=== PATIENT | male | born 1965 | race Caucasian/White ===

== ENCOUNTER 2018-02-22 13:57 | Outpatient (REF) | payer BC, SELFPAY ==
[2018-02-23 13:15] LABS: Chlamydia Result Negative; GC Result Negative; Specimen Description URINE
== END 2018-02-22 14:17 ==
LOC: LBN 13:57
PROVIDERS: PCP Family Medicine; Visit Provider Nurse Practitioner Family
DX: R10.2 Pelvic and perineal pain (principal)
CPT/HCPCS: 87491; 87591

== ENCOUNTER 2018-03-04 08:53 | Outpatient (CLI) | payer BC, SELFPAY ==
[2018-03-04 11:40] LABS: HCT 45.5 % (40.0-50.0); HGB 15.2 g/dL (13.5-17.5); Mean Corp. HGB Concentration 33.4 g/dL (32.0-36.0); Mean Corpuscular Hemoglobin 28.1 pg (27.0-33.0); Mean Corpuscular Volume 84.3 fL (80-95); Mean Platelet Volume 10.5 fL (8.0-11.0); Platelet Count 338 x1000/uL (130-400); RBC Distribution Width 14.6 % (11.8-14.1); White Blood Cell Count 5.64 k/cumm (4.4-10.8)
[2018-03-04 11:42] LABS: ALT 28 U/L (12-78); AST 23 U/L (15-37); Albumin 4.1 g/dL (3.4-5.0); Alkaline Phosphatase 72 U/L (46-116); Anion Gap 5.3 mmol/L (3-11); BUN 18 mg/dL (7-18); Bilirubin, Total 0.6 mg/dL (0.2-1.0); CO2 29.7 mmol/L (21.0-32.0); CREATININE 0.98 mg/dL (0.70-1.30); Calcium 9.1 mg/dL (8.5-10.1); Chloride 105 mmol/L (98-107); Glucose 120 mg/dL (70-100); Potassium 4.3 mmol/L (3.5-5.1); Sodium 140 mmol/L (136-145); Total Protein 7.2 g/dL (6.4-8.2)
[2018-03-04 16:50] LABS: Hemoglobin A1C 5.9 % (4.5-6.2)
== END 2018-03-04 09:13 ==
PROVIDERS: PCP Family Medicine; Visit Provider Nurse Practitioner Family
DX: R14.0 Abdominal distension (gaseous) (principal); K73.9 Chronic hepatitis, unspecified
CPT/HCPCS: 36415; 80053; 85027; 83036

== ENCOUNTER 2018-03-05 01:08 | Outpatient (CLI) | payer BC, SELFPAY ==
--- NOTE | 2018-03-05 07:00 | DI.US_ITS ---
SYMPTOM/DIAGNOSIS: ABDOMINAL BLOATING, EXCESS GAS 414.0 ABDOMINAL ULTRASOUND: The aorta and vena cava are normal. The liver is intact. The gallbladder is well maintained. There are no gallstones identified. The common duct caliber is 3 mm. The pancreas and spleen are normal. The kidneys are intact. The right kidney measures 10.5, the left kidney 11.0 cm. There is no evidence of free fluid in the abdomen or an abdominal mass. SUMMARY: Negative abdominal ultrasound. The study is less than ideal technically due to gas in the bowel.
== END 2018-03-05 01:28 ==
PROVIDERS: PCP Family Medicine; Visit Provider Nurse Practitioner Family
DX: R14.0 Abdominal distension (gaseous) (principal); R14.3 Flatulence
CPT/HCPCS: 76700

== ENCOUNTER 2018-07-19 06:15 | Day surgery (SDC) | payer BC, SELFPAY ==
--- NOTE | 2018-07-19 06:10 | W.COLOREPORT ---
Date of service: 07/19/18 Time of Service: 07:23 Colonoscopy Report Date of procedure: 07/19/18 Pre-op diagnosis general: Colon Cancer Screening Post-op diagnosis procedure note: other (Cecal polyp) Procedure: Colonoscopy with polypectomy by cold forceps Surgeon: Maria De Jesus Marrero Anesthesia proc note operative: other (General/ ASA 2/Sree Arce, CINTHIA ) Estimated blood loss (mL): 3 Pathology: other (cecal polyp) Complications: None Disposition: same day Indications: Mr. Gould is a pleasant 53 year old male seen in the office for a screening colonoscopy. Risks, benefits and complications have been reviewed. Complications include but are not limited to bleeding, pain, perforation, missed small lesion/polyp, sore throat, aspiration and adverse reaction to the medications. Questions were entertained and answered to their satisfaction and they wished to proceed. No guarantees were given or implied. Prep: Miralax/Dulcolax Procedure Start Time: 07:23 Procedure End Time: 07:48 Retraction Time: 14 minutes Findings: One small sessile polyp in the cecum Procedure Description: After informed consent was obtained the patient was taken to the procedure room and placed in a left decubitous position. Monitors were applied and a time out was done. The patients name, date of , procedure, allergies to medications and metal in their body was reviewed. The patient was then sedated. Once sedated and comfortable a rectal exam was done. External exam was normal. Internal exam revealed a normal sphincter tone and no palpable masses. The prostate felt smooth. The scope was then introduced and retro-flexed. No internal hemorrhoids were identified. The scope was then advanced to the cecum without difficulty. The TI and appendiceal orifice were identified. The prep was good. The scope was then slowly retracted over 14 minutes back into the rectum. Polyps were removed in the cecum with cold forceps. The scope was removed and the patient was woken up and taken back to Same day surgery in stable condition. The patient tolerated the procedure well and there were no immediate complications. Follow up: The patient should follow up in 3-5 years unless they develop changes in bowel habits or other new gastrointestinal complaints.
--- NOTE | 2018-07-19 06:12 | W.PM.DSUDISC ---
Discharge Plan Disposition Patient Disposition: HOME Condition: Good Discharge Details Reason For Visit: Colonoscopy Attending Provider: Maria De Jesus Marrero Primary Care Provider: Tang Perales Home Meds and New Rx's Prescriptions: Continued fluticasone propionate 50 mcg/actuation spray,suspension 2 spray NS DAILY Qty: 18.2 RF: 8 cetirizine [Zyrtec] 10 MG tablet 10 mg PO DAILY PRN RF: 0 ketoconazole 15 GM cream 15 gm Topical BID Qty: 30 RF: 0 Discharge Instructions Instructions: Colonoscopy (DC), Colorectal Polyps (DC) Additional Instructions: Findings: One small sessile polyp Follow up: 3-5 years Please call if you develop: fevers >101.5 Nausea or Vomiting Abdominal pain that is not transient DAY SURGERY UNIT POST COLONOSCOPY INSTRUCTIONS 1. Because there will be medication in your system for the next 24 hours, you may feel a little sleepy. Your coordination will be affected. Therefore: a. Do not drive or operate dangerous equipment for 24 hours. b. Do not drink alcohol beverages for 24 hours (not even beer). c. Plan to go home and rest for the day. 2. Generally there are no restrictions on your activity after a day or so has gone by, but you may feel a bit fatigued for a few days. 3 After you arrive home you may have a light meal and return to a normal diet as you can tolerate it without feeling sick to your stomach. 4. After surgery, you may feel pain or discomfort. This should be only transient, but if it persists please contact your doctor. 5. If there are any questions regarding the findings of your procedure, please feel free to contact your doctor. 6. If you are unable to contact your doctor with a problem, contact the hospital at [phone]. 7. Continue all your regular medications unless directed otherwise. I understand the above instructions and have no questions. Signature of Patient or Responsible Adult Escort Date/Time Name of Responsible Adult Escort Signature of Nurse Date/Time Activity:: Activity as Tolerated Diet:: As Tolerated Discharge Orders Discharge Orders: Discharge Order (Routine); Ordered 07/19/18 Ordered By: Maria De Jesus Marrero DS: Diagnosis Discharge Diagnosis (1) S/P colonoscopy: Status: Acute (2) Colorectal polyp detected on colonoscopy: Status: Acute
[2018-07-19 06:19] VITALS: BP 141/90; PULSE 94; RESP 18; TEMP 35.9; O2SAT 100
[2018-07-19] MEDS: Lactated Ringers 1,000 ML 80 ML IV (06:50)
--- NOTE | 2018-07-19 07:33 | BOWEL_PTH ---
PATIENT: Arpit Gould LOC: [facility] U#:[id number] AGE/SX: 53/M ROOM: RE07/19/[address]: Maria De Jesus Marrero MD : 1965 BED: DIS: 07/19/2018 SPEC #: [id number] RECD: 07/19/18 12:43 STATUS: MELISSA REQ #: [id number] SHEMAR: 07/19/18 07:[address]: Maria De Jesus Marrero DEPT: Surgical Specimen RECD BY: Faye Corrales ENTERED: 07/19/18 12:44 SP TYPE: Bowel OTHR DR: Tang Perales MD Tissues: 1 - BIOPSY BOWEL Procedures: GROSS AND MICRO LEVEL 4 Comments: [id number]
[2018-07-19 08:25] VITALS: BP 134/88; PULSE 68; RESP 16; TEMP 36.2; O2SAT 99
== END 2018-07-19 08:38 | disposition home or self-care (01) ==
PROVIDERS: PCP Family Medicine; Visit Provider Surgery
PROC: 0DJD8ZZ Inspection of Lower Intestinal Tract, Via Natural or Artificial Opening Endoscopic (ICD-10-PCS; CPT 45378; principal; 2018-07-19 07:30)
DX: Z12.11 Encounter for screening for malignant neoplasm of colon (principal); D12.0 Benign neoplasm of cecum
CPT/HCPCS: 45380; 88305; J3010

== ENCOUNTER 2019-03-10 11:45 | Outpatient (CLI) | payer BC, SELFPAY ==
[2019-03-10 13:14] LABS: HCT 45.8 % (40.0-50.0); HGB 15.5 g/dL (13.5-17.5); Mean Corp. HGB Concentration 33.8 g/dL (32.0-36.0); Mean Corpuscular Hemoglobin 28.2 pg (27.0-33.0); Mean Corpuscular Volume 83.3 fL (80-95); Mean Platelet Volume 10.5 fL (8.0-11.0); Platelet Count 362 x1000/uL (130-400); RBC Distribution Width 14.4 % (11.8-14.1)
== END 2019-03-10 12:05 ==
PROVIDERS: PCP Family Medicine; Visit Provider Nurse Practitioner
DX: R14.0 Abdominal distension (gaseous) (principal)
CPT/HCPCS: 36415; 85027

== ENCOUNTER 2019-09-01 02:59 | Outpatient (CLI) | payer BC, SELFPAY ==
[2019-09-01 13:59] LABS: Anion Gap 8.5 mmol/L (3-11); BUN 17 mg/dL (7-18); CO2 25.5 mmol/L (21.0-32.0); Calcium 9.4 mg/dL (8.5-10.1); Chloride 102 mmol/L (98-107); Glucose 95 mg/dL (74-106); Potassium 4.2 mmol/L (3.5-5.1); Sodium 136 mmol/L (136-145)
[2019-09-01 14:13] LABS: Calculated LDL 119 mg/dL (<100); Cholesterol 187 mg/dL (<200); HDL Cholesterol 62 mg/dL (40-60); TSH 0.96 uIU/mL (0.36-3.74); Triglyceride 34 mg/dL (<150)
[2019-09-05 12:46] LABS: IgA 258 mg/dL (85-499); Tissue Transglutaminase IgA <1.2 U/mL (<4.0)
== END 2019-09-01 03:19 ==
PROVIDERS: Family Medicine; PCP Emergency Medicine; Visit Provider Emergency Medicine
DX: R14.0 Abdominal distension (gaseous) (principal); E03.9 Hypothyroidism, unspecified; Z00.00 Encounter for general adult medical examination without abnormal findings
CPT/HCPCS: 36415; 80048; 80061; 82784; 83516; 84443

== ENCOUNTER 2019-09-02 07:21 | Outpatient (REF) | payer BC, SELFPAY ==
[2019-09-03 11:22] LABS: Campylobacter PCR Negative (Negative); Salmonella PCR Negative (Negative); Shiga Toxin PCR Negative (Negative); Shigella/Enteroinvasive Ecoli Negative (Negative)
[2019-09-05 14:39] LABS: Calprotectin 26.3 mcg/g
== END 2019-09-02 07:41 ==
LOC: LBN 07:21
PROVIDERS: PCP Emergency Medicine; Visit Provider Emergency Medicine
DX: R19.7 Diarrhea, unspecified (principal); R14.0 Abdominal distension (gaseous)
CPT/HCPCS: 87329; 87505; 83993; 87324

== ENCOUNTER 2020-12-04 17:09 | Emergency (ER) | payer BC, SELFPAY ==
[2020-12-04 18:01] VITALS: BP 173/70; PULSE 75; RESP 16; TEMP 36.9; O2SAT 100
[2020-12-04] MEDS: Tetracaine 0.5% 4 ML BTL (19:17)
[2020-12-04] MEDS: Fluorescein STRIPS 100/BOX 1 MG (19:17)
[2020-12-04] MEDS: Erythromycin Ophth Oint 3.5 GM TUBE OD (19:18)
--- NOTE | 2020-12-04 19:35 | ED.GENADUL_ITS ---
Discharge Plan Disposition Patient Disposition: HOME Condition: Good Discharge Details Clinical Impression: Foreign body in eye Primary Care Provider: Aubrey Rojas ED Provider: Faye Obando Home Meds and New Rx's Prescriptions: Continued fluticasone propionate 50 mcg/actuation spray,suspension 2 spray NS DAILY Qty: 18.2 RF: 8 IBgard 90 mg capsule,delayed,extend.release 90 mg PO DAILY RF: 0 Metamucil 3.4 gram/5.4 gram powder 1 tbsp PO DAILY PRNRF: 0 sh-mxdz-pszms-lycopene-ginkgo 400-600-120 mcg-mcg-mg tablet 1 tab PO DAILY RF: 0 famotidine 20 mg tablet 20 mg PO DAILY Qty: 90 RF: 6 Discharge Instructions Instructions: Eye Foreign Body (ED) Additional Instructions: follow-up with eye doctor tomorrow with persistent pain use erythromycin ointment 3 times daily return earlier with new or worsening complaints [facility] is a good local resource Discharge Data Discharge Date/Time-TO BE ENTERED AT DEPARTURE: 12/04/20 19:37 Medical Decision Making Foreign body was removed by me from underneath patient's right upper lid, he tolerated procedure without incident Placed on erythromycin There is no actual evidence of corneal abrasion although his conjunctiva is injected secondary to probable irritation He is instructed to return earlier should he have new or worsening pain Pupils are equal round reactive to light and accommodation There is no evidence of glaucoma clinically Visual acuity reviewed, please see nursing documentation Foreign body removed by me without incident, patient tolerated well Placed on erythromycin and referral to ophthalmology HPI General Mode of arrival: ambulatory . Date/Time Provider Initiated Documentation: 12/04/20 18:57 . Limitations to Documentation: no limitations . Information obtained by: patient . HPI Narrative: This 65-year-old gentleman presents with pain to his right thigh. 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 He is pain with movement of his eyes since that time. He denies any corrective lens use. He denies any acute change in his vision although he does state he has had some blurring. Denies headache associated Related Data Home Medications Medication Instructions Recorded Confirmed fluticasone propionate 50 2 spray NS DAILY #18.2 gm 08/11/19 12/04/20 mcg/actuation nasal spray,suspension famotidine 20 mg tablet 20 mg PO DAILY #90 tab 10/26/19 12/06/20 myoaryqa-avyj-xecbp acid 400 1 tab PO DAILY tab 09/06/20 12/06/20 mcg-lycopene 600 mcg-ginkgo 120 mg tablet peppermint oil 90 mg 90 mg PO DAILY cap 09/06/20 12/06/20 capsule,delayed,extended release psyllium husk 3.4 gram/5.4 gram 1 tbsp PO DAILY PRN 09/06/20 12/06/20 oral powder Previous Rx's Medication Instructions Recorded fluticasone propionate 50 2 spray NS DAILY #18.2 gm 08/11/19 mcg/actuation nasal spray,suspension famotidine 20 mg tablet 20 mg PO DAILY #90 tab 10/26/19 Allergies Allergy/AdvReac Type Severity Reaction Status Date / Time Penicillins Allergy Unknown Verified 12/06/20 07:23 General Stated Complaint: EyeProblem MICHELLE: 4 Review of Systems All systems reviewed & are unremarkable except as noted in HPI and below PFSH Medical History (Updated 12/04/20 @ 19:10 by JAKUB Tse) Encounter for screening colonoscopy Fatigue Groin rash (05/14/16) IBS (irritable bowel syndrome) Obesity Prediabetes (~2011) Pterygium of left eye (05/14/16) Surgical History History of esophagogastroduodenoscopy (EGD) History of excision of lesion excision of lesion left side of nose S/P colonoscopy (~07/19/18) Family History (Updated 09/07/20 @ 14:22 by Jackie Koehler) Mother , 70 Essential hypertension Heart attack Father No problems noted. Brother No problems noted. Brother No problems noted. Maternal Grandfather , HEART FAILURE at age 67. Heart disease Paternal Grandfather No problems noted. Maternal Grandmother Uterine cancer Paternal Grandmother Diabetes Breast cancer Sister Wang's palsy Social History (Updated 09/07/20 @ 14:21 by Jackie Koehler) Smoking/Tobacco Use Status: Current-Occasional Tobacco Type: smokeless tobacco Smokeless tobacco user: chewing tobacco Second Hand Exposure: Yes Smoking risk assessment performed?: Yes Alcohol Intake: current Alcohol Intake frequency: a few times a week Alcohol type: beer and hard liquor Drug use: Never Caregiver/Support person: No Household members: spouse and significant other Housing: house Communication Needs: None Do you need help understanding health information?: Rarely Pets and animals: No Sexually active: Yes Do you think of yourself as: straight/heterosexual Current gender identity: male What is your relationship status?: How often do you talk on the phone with friends or family?: three or more times per week How often do you get together with friends or relatives?: once per week How often do you attend yarsani or mandaeism services?: decline to answer Do you belong to any clubs or organized social groups?: yes Panel score (0-1 are the most socially isolated patients): 3 What type of physical activity do you participate in: none Wen/Zoroastrian: Rastafari Special wen needs: No Seatbelt use: always Helmet use: Yes Helmet use: sometimes Drive intox 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 Do you feel safe at home: Yes Do you feel safe in your relationship?: Yes Exam Const General: cooperative Eyes Conjunctivae: conjunctival abnormality Pupils: PERRL EOM: EOM intact bilaterally Other: Foreign body noted under right upper lid Course Vital Signs Vital signs: Vital Signs Temperature 36.9 C 12/04/20 18:01 Pulse 75 12/04/20 18:01 Respiratory Rate 16 12/04/20 18:01 Blood Pressure 173/07 H 12/04/20 18:01 Pulse Oximetry 100 12/04/20 18:01 Temperature 36.9 C 12/04/20 18:01 Temperature Source Skin 12/04/20 18:01 Pulse 75 12/04/20 18:01 Respiratory Rate 16 12/04/20 18:01 Respiratory Effort 12/04/20 18:01 Blood Pressure 173/07 H 12/04/20 18:01 Blood Pressure Position Sitting 12/04/20 18:01 Pulse Oximetry 100 12/04/20 18:01 Oxygen Delivery Method Room Air 12/04/20 18:01 Oxygen Flow Rate 0 12/04/20 18:01 Pain Level 6 12/04/20 18:01
[2020-12-04 19:38] VITALS: BP 173/70; PULSE 75; RESP 16; O2SAT 100
== END 2020-12-04 19:37 | disposition home or self-care (01) ==
PROVIDERS: Emergency Provider Physician Assistant; PCP Emergency Medicine
DX: T15.81XA Foreign body in other and multiple parts of external eye, right eye, initial encounter (principal); X58.XXXA Exposure to other specified factors, initial encounter
CPT/HCPCS: 99283

== ENCOUNTER 2022-10-30 08:24 | Outpatient (CLI) | payer BC, SELFPAY ==
[2022-10-30 13:35] LABS: Hemoglobin A1C 5.6 % (<5.7)
[2022-10-30 13:40] LABS: Calculated LDL 140 mg/dL (<100); Cholesterol 217 mg/dL (<200); HDL Cholesterol 72 mg/dL (40-60); Triglyceride 27 mg/dL (<150)
== END 2022-10-30 08:25 | disposition home or self-care (01) ==
LOC: LOS 08:25
PROVIDERS: PCP Nurse Practitioner Family; Referring Provider Nurse Practitioner Family; Visit Provider Nurse Practitioner Family
DX: Z13.220 Encounter for screening for lipoid disorders (principal); Z13.1 Encounter for screening for diabetes mellitus
CPT/HCPCS: 36415; 80061; 83036

== ENCOUNTER 2023-11-11 03:06 | Outpatient (CLI) | payer BC, SELFPAY ==
[2023-11-11 12:46] LABS: Calculated LDL 128 mg/dL (<100); Cholesterol 225 mg/dL (<200); HDL Cholesterol 90 mg/dL (40-60); Triglyceride 38 mg/dL (<150)
[2023-11-11 12:47] LABS: Hemoglobin A1C 5.5 % (<5.7)
[2023-11-11 18:10] LABS: PSA, Screening 0.8 ng/mL (<=3.5)
== END 2023-11-11 03:07 | disposition home or self-care (01) ==
LOC: LOS 03:06
PROVIDERS: PCP Nurse Practitioner Family; Visit Provider Nurse Practitioner Family
DX: Z13.220 Encounter for screening for lipoid disorders (principal); Z12.5 Encounter for screening for malignant neoplasm of prostate; Z13.1 Encounter for screening for diabetes mellitus
CPT/HCPCS: 36415; 80061; 84153; 83036

== ENCOUNTER 2024-03-25 09:06 | Day surgery (SDC) | payer BC, SELFPAY ==
--- NOTE | 2024-03-24 15:59 | W.PM.DSUDISC ---
Date of service: 03/25/24 Discharge Plan Disposition Patient Disposition: Home Condition: Good Discharge Details Reason For Visit: screening colonoscopy Attending Provider: Erich Pace Primary Care Provider: Murphy Jennings Home Meds and New Rx's Prescriptions: Continued fluticasone propionate 50 mcg/actuation spray,suspension 2 spray NS DAILY Qty: 18.2 8RF IBgard 90 mg capsule,delayed,extend.release 90 mg PO DAILY Metamucil 3.4 gram/5.4 gram powder 1 tbsp PO DAILY PRN Rx Instructions: mix into at least 8 oz of water or juice before administering iu-ptdv-asfru-lycopene-ginkgo 400-600-120 mcg-mcg-mg tablet 1 tab PO DAILY famotidine 20 mg tablet 20 mg PO DAILY Qty: 90 6RF Discontinued bisacodyl [Dulcolax (bisacodyl)] 5 mg tablet,delayed release (DR/EC) 5 mg PO ONCE Qty: 4 0RF Rx Instructions: Take per colonoscopy instructions provided by ordering providers office polyethylene glycol 3350 17 gram/dose powder 17 g PO ONCE Qty: 238 0RF Rx Instructions: Take per colonoscopy instructions provided by ordering providers office Discharge Instructions Instructions: Colon polyps Additional Instructions: Arpit, it was great meeting you today, and I hope you are comfortable throughout the procedure. Everything went very smoothly. I did find to remove just 1 single polyp today. It is quite small, and I do not think it has anything to worry about. I will send this off to the pathologist for their review, once I know the nature of that polyp, I will be in touch with recommendations for screening of your next colonoscopy. If you need anything or have any questions at all, please do not hesitate to ask. 1. If tolerated, consume a soft, low fiber diet for 1-2 days. 2[address] Do not drive, drink alcohol, operate machinery, make critical decisions, or do activities that require coordination or balance for 24 hours. 3. Because air was put into your colon during the procedure, expelling air from your rectum (passing gas or farting) is normal. 4. You may not have a bowel movement for 1-3 days because of the colonoscopy prep. This is normal. 5. Go directly to the emergency room if you notice any of the following: Develop chills (warm to touch), or if you have a thermometer and your temperature is above 101 Difficulty breathing or difficultly swallowing Persistent vomiting Severe abdominal pain, other than gas cramps Severe chest pain Black, tarry stools Any bleeding ? exceeding one tablespoon 6. Call your physician if the site where your intravenous was started becomes red, swollen, painful, and warm to touch. 7. Your physician has reviewed your pre-procedure medications. Please continue to take those medications as previously ordered. You will be given specific information/education regarding any changes to your medications before leaving. Stand Alone Forms: Anesthesia Discharge InstRegina Enriquez (DSU) Activity:: Activity as Tolerated Diet:: As Tolerated Discharge Orders Discharge Orders: Discharge Order (Routine); Ordered 03/24/24 Ordered By: Erich Pace DS: Diagnosis Discharge Diagnosis (1) Encounter for screening colonoscopy: Status: Acute Asessment and Plan: Follow-up on polypectomy results
--- NOTE | 2024-03-24 16:01 | W.COLOREPORT ---
Date of service: 03/25/24 Time of Service: 11:34 Colonoscopy Report Date of procedure: 03/25/24 Pre-op diagnosis general: screening colonoscopy Post-op diagnosis procedure note: other (Colon polyps, diverticulosis) Procedure: colonoscopy with polypectomy Surgeon: Erich Pace Anesthesia Type: General:No Airway Estimated blood loss (mL): 5 Pathology: other (0.25 cm flat polyp in the cecum) Complications: None Disposition: same day Indications: Arpit is a 58 year old man with a family history of colon cancer and personal history of adenomatous polyos who needs a screening colonscopy Prep: Miralax/Dulcolax Procedure Start Time: 10:55 Procedure End Time: 11:11 Retraction Time: 9 Findings: 0.25 cm flat cecal polyp, scant diverticulosis Procedure Description: After the induction of anesthesia, and with the patient in left lateral decubitus position, I began by performing an external anorectal exam.? Perineum and skin were normal, as was the anal verge.? There was no evidence of external hemorrhoids.? Next, I performed a digital rectal exam.? I did not appreciate any abnormal findings.? Next, I advanced a colonoscope into the rectal vault.? I performed retroflexion.? This appeared normal.? Using insufflation, I then advanced the colonoscope beyond the rectal folds and into the sigmoid colon before advancing towards the cecum.? The quality of the prep was excellent.? The scope was noted to be in the cecum by identification of the ileocecal valve and appendiceal orifice.? On the top side of the ileocecal valve was a 0.25 cm flat polyp. This was removed with cold forceps with minimal bleeding I then began withdrawing the colonoscope using repeated irrigation as necessary for full evaluation of the colonic mucosa. ?There were some occasional small diverticula scattered along the length of the colon as well. Once the scope was withdrawn to the level of the rectum, great care was taken to examine portions of the rectal folds.? Finally, the scope was withdrawn and the patient was brought to the same-day surgery recovery unit as the anesthetic wore off. ?The findings and instructions were shared with the patient prior to discharge. [place] Bowel Prep [place] Bowel Prep Right Colon: 3 Left Colon: 3 Transverse Colon: 3 Total Score: 9
[2024-03-25 09:29] VITALS: BP 167/97; PULSE 95; RESP 18; TEMP 36.4; O2SAT 99
[2024-03-25] MEDS: Lactated Ringers 1,000 ML 80 ML IV (09:46)
--- NOTE | 2024-03-25 10:10 | BOWEL_PTH ---
PATIENT: Arpit Gould LOC: [facility] U#:[id number] AGE/SX: 58/M ROOM: RE03/25/[address]: Erich Pace MD : 1965 BED: DIS: 03/25/2024 SPEC #: [id number] RECD: 03/25/24 13:00 STATUS: MELISSA REQ #: [id number] SHEMAR: 03/25/24 10:[address]: Erich Pace DEPT: Surgical Specimen RECD BY: Faye Corrales ENTERED: 03/25/24 13:00 SP TYPE: Bowel OTHR DR: Murphy Jennings, MINA Tissues: 1 - BIOPSY BOWEL Procedures: GROSS AND MICRO LEVEL 4 Comments: [id number]
--- NOTE | 2024-03-25 10:48 | W.ANESPRE ---
General Info Date of Service Date Performed: 03/25/24 Height: 5 ft 11 in Weight: 103.4 kg Body Mass Index (BMI): 31.8 Surgical Procedure: Operation Date: 03/25/24 10:30 Proposed Procedure Side Surgeon p Colonoscopy Erich Pace MD Actual Procedure Side Surgeon p Colonoscopy Not Applicable Erich Pace MD Pre-Op Diagnosis Post-Op Diagnosis HISTORY OF COLON POLYPS Meds Allergies and Home Medications Allergies Allergy/AdvReac Type Severity Reaction Status Date / Time Penicillins Allergy Unknown n/a Verified 03/25/24 09:27 Home Medication ?Medication ?Instructions ?Recorded famotidine 20 mg tablet 20 mg PO DAILY #90 tabs 10/26/19 shxatvxx-fjly-whevq acid 400 1 tab PO DAILY 09/06/20 mcg-lycopene 600 mcg-ginkgo 120 mg tablet peppermint oil 90 mg 90 mg PO DAILY 09/06/20 capsule,delayed,extended release (IBgard) psyllium husk 3.4 gram/5.4 gram 1 tbsp PO DAILY PRN 09/06/20 oral powder (Metamucil) fluticasone propionate 50 2 spray NS DAILY #18.2 grams 11/05/23 mcg/actuation nasal spray,suspension Current Visit Medications: Current Medications Generic Name Dose Route Start Last Admin Trade Name Freq PRN Reason Stop Dose Admin Ringer's Solution 1,000 mls @ 0 mls/hr 03/25/24 06:00 03/25/24 09:46 IV 03/25/24 23:59 80 mls/hr INFUSION MARCIA Administration Ringer's Solution 1,000 mls @ 80 mls/hr 03/25/24 09:15 IV 04/24/24 09:14 INFUSION MARCIA IV Miscellaneous Supplies 1 each 03/25/24 06:00 Iv Access IV 03/25/24 23:59 DIRECTED MARCIA Ondansetron HCl 4 mg 03/24/24 16:02 Ondansetron 4 Mg/2 Ml Vial IVP 04/23/24 16:01 Q4H PRN PRN Nausea / Vomiting Sodium Chloride 0 ml 03/25/24 06:00 Normal Saline Flush 10 Ml Syr IV 03/25/24 23:59 PRN PRN Sodium Chloride 0 ml 03/25/24 06:00 Normal Saline 10 Ml Vial IJ 03/25/24 23:59 DIRECTED PRN Sterile Water 0 ml 03/25/24 06:00 Water,Injection,Sterile 10 Ml Vial IJ 03/25/24 23:59 DIRECTED PRN PFSH Active Problems Active Problems: Problem Status Onset Code Encounter for screening colonoscopy Acute Z12.11 Family history of diabetes mellitus Chronic Z83.3 Obesity Chronic E66.9 Rhinitis Chronic J31.0 White coat syndrome with high blood pressure without hypertension Chronic 05/09/15 R03.0 Prediabetes Chronic ~2011 R73.03 Adenomatous colon polyp Acute ~07/19/18 D12.6 Abdominal bloating Acute R14.0 IBS (irritable bowel syndrome) Chronic K58.9 Medical History Medical History Pterygium of left eye (05/14/16) Surgical History Surgical History History of esophagogastroduodenoscopy (EGD) S/P colonoscopy (~07/19/18) History of excision of lesion excision of lesion left side of nose Tobacco Smoking/Tobacco Use Status: Current-Occasional Tobacco Type: smokeless tobacco Smokeless tobacco user: chewing tobacco Passive smoking exposure: Yes Second hand exposure: Yes Alcohol Alcohol Intake: current Alcohol intake frequency: a few times a week Alcohol type: beer and hard liquor Substance Use Substance use: Never Substance use type: does not use Vital Signs and Lab Results Vital Signs Most Recent Vital Signs in EMR: Most Recent Vital Signs Temp Pulse Resp BP Pulse Ox 36.4 C L 95 H 18 167/97 H 99 03/25/24 09:29 03/25/24 09:29 03/25/24 09:29 03/25/24 09:29 03/25/24 09:29 Lab Results Blood Type / Crossmatch: No Data to Display Complete Blood Count: No Data to Display Complete Metabolic Panel: No Data to Display Liver Function Panel: No Data to Display Coagulation Panel: No Data to Display Cardiac Panel: No Data to Display Arterial Blood Gas: No Data to Display Venous Blood Gas: No Data to Display Pancreas Panel: No Data to Display Thyroid Panel: No Data to Display Infectious Disease: No Data to Display Blood Cultures: No Data to Display Toxicology Panel: No Data to Display Anesthesia Assessment and Plan Anesthesia History Personal History: No History of Anesthesia Complications Family History: No Family History of Anesthesia Complications Exercise Tolerance Exercise Tolerance: Metabolic Equivalents>4 Pertinent Negatives Pertinent Negatives: No Symptoms of GERD (Well controlled on Famotidine ), No Major Cardiovascular Symptoms or Complaints, No Major Pulmonary Symptoms or Complaints and No History of CVA/TIA Cardiac & Pulmonary Exam Cardiac Exam: Normal S1/S2 Heart Sounds Pulmonary Exam: Clear Bilateral Breath Sounds Implantable Cardiac Device Does patient have a Pacemaker or an ICD?: No Airway Exam Known Difficult Airway: No Mallampati Class: 2 Mouth Opening: Normal (> 3cm) Thyromental Distance: Greater than 3 cm Neck Range of Motion: Full ROM Neck Circumference: Normal Teeth Condition: Normal Dentition and Generalized Poor Dentition ASA Classification ASA Score: ASA 2 Emergency Case?: No NPO Status NPO Status: NPO Clears >2 hours, Solids >8 hours Anesthesia Plan Resuscitation Status: Full Code Anesthesia Technique: General Anesthesia Airway Planned: Natural Airway Monitors Used: Standard Monitors
[2024-03-25 10:49] VITALS: BMI 31.8
[2024-03-25 11:14] VITALS: BP 134/88; PULSE 81; RESP 18; TEMP 36.6; O2SAT 96
[2024-03-25 11:39] VITALS: BP 149/85; PULSE 72; RESP 17; TEMP 36.6; O2SAT 100
--- NOTE | 2024-03-25 13:50 | W.ANESPOSTOP ---
Postoperative Evaluation Date, Time and Location Date Performed: 03/25/24 Time Performed: 13:50 Patient Location: Day Surgery Unit Vital Signs Most Recent Imported Vital Signs: Most Recent Vital Signs Temp Pulse Resp BP Pulse Ox 36.6 C 72 17 149/85 H 100 03/25/24 11:39 03/25/24 11:39 03/25/24 11:39 03/25/24 11:39 03/25/24 11:39 Pain Score Most Recent Pain Score: Most Recent Pain Score Pain Level 0 03/25/24 11:39 Assessment Mental Status: Awake (Alert & Oriented to Patient Baseline) Airway and Respiratory Function: Patent airway with normal (patient baseline) respiratory exam Cardiovascular Function: Hemodynamically Stable Hydration Status: Adequately Hydrated Nausea & Vomiting: No Nausea or Vomiting Pain: Pt. Denies Any Pain Peripheral Nerve Block: Patient did not receive a nerve block Postoperative Comments:: Seen earlier and was appropriate for discharge
== END 2024-03-25 11:52 | disposition home or self-care (01) ==
LOC: SUR 09:07
PROVIDERS: PCP Nurse Practitioner Family; Visit Provider Surgery
PROC: 0DJD8ZZ Inspection of Lower Intestinal Tract, Via Natural or Artificial Opening Endoscopic (ICD-10-PCS; CPT 45378; principal; 2024-03-25 10:30)
DX: Z12.11 Encounter for screening for malignant neoplasm of colon (principal); R73.03 Prediabetes; K57.30 Diverticulosis of large intestine without perforation or abscess without bleeding; D12.0 Benign neoplasm of cecum
CPT/HCPCS: 45380; 88305; J2704